=== PATIENT | male | born 1975 | race Caucasian/White ===

== ENCOUNTER 2025-03-01 21:03 | Emergency (ER) | payer OTHER, SELFPAY ==
[2025-03-01 21:11] VITALS: BP 188/118
[2025-03-01 21:34] LABS: Hematocrit 46.0 % (39.0-52.0); Hemoglobin 16.0 g/dL (13.0-18.0); Mean Corp Hgb Conc. 34.8 g/dL (33.0-37.0); Mean Corpuscular Volume 87.5 fL (80.0-94.0); Nucleated Red Blood Cells % 0 % (-); Platelet Count 288 10^3/uL (130-400); Red Cell Dist. Width 12.1 % (11.5-14.5)
[2025-03-01 21:51] LABS: COVID-19 Antigen Negative (Negative)
[2025-03-01 22:03] LABS: ALT (SGPT) 76 U/L (0-50); AST (SGOT) 69 U/L (17-59); Albumin 4.2 g/dl (3.5-5.0); Alkaline Phosphatase 39 U/L (38-126); Blood Urea Nitrogen 14 mg/dl (9-20); Calcium 8.9 mg/dl (8.4-10.2); Carbon Dioxide 28 mmol/L (22-30); Chloride 98 mmol/L (98-107); Glucose 155 mg/dl (70-99); Potassium 4.1 mmol/L (3.5-5.1); Sodium 134 mmol/L (135-145); Total Protein 6.7 g/dl (6.3-8.2); eGFR > 60.00
[2025-03-01] MEDS: MOTRIN 600 MG PO (22:35)
[2025-03-01 23:28] VITALS: BP 158/105; BMI 31.5
--- NOTE | 2025-03-02 00:28 | ED.GENMED ---
History of Present Illness
General
Chief Complaint: Fever
Source: patient
Exam Limitations: none
Time Seen by Provider: 03/01/25 23:13
Nursing documentation reviewed up to this point in time: agreed with
History of Present Illness
History of Present Illness:
49-year-old male presenting to the emergency department today with concerns of fever and upper respiratory symptoms over the past few days. Tylenol prior to arrival. Was seen in urgent care but his blood pressure was elevated and told to go to the
ER. Denies any chest pain shortness of breath numbness weakness.
Review of Systems
Review of Systems
Allergies reviewed?: Yes
All Other Systems: ROS reviewed and negative except as documented in HPI and ROS
Phy Exam
Physical Exam
Physical Exam:
GENERAL: Alert , in no apparent distress
EYE: pupils equal and reactive
NECK: Supple, no significant adenopathy.
ENT: o/p clr, mmm.
CARDIAC: Regular rate and rhythm .
LUNGS: Clear breath sounds bilaterally, no acute respiratory distress, no wheezes/rales/rhonchi
ABDOMEN: Soft, without focal tenderness, no r/g, no cvat
NEUROLOGICAL: Alert and oriented, no focal neuro deficits
SKIN: Warm and dry, skin intact.
MUSCULOSKELETAL: No edema, well perfused.
PSYCH: Normal and appropriate interaction.
Sepsis
Sepsis Screening
Sepsis Assessment: Sepsis Ruled Out
Sepsis Screen
Sepsis Screen: Sepsis Ruled Out
Date: 03/03/25
Time: 08:12
Course
Orders/Labs/Results
Orders:
Orders
03/01/25 21:14
CR Chest - 2 Views Urgent
Comment:
Reason For Exam: suspected infection
03/01/25 21:26
COVID-19 Antigen Urgent
Source: Nasal Swab
Complete Blood Count/With Diff Urgent
Comprehensive Metabolic Panel Urgent
Lactic Acid Q4H
Comment: ON ICE, CANCEL 2ND ORDER IF FIRST LACTIC ACID LEVEL <2
Influenza A+B Rapid Molecular Urgent
[place] Source: Nasal Swab
Specimen Description:
03/01/25 22:33
Ibuprofen [Motrin] 600 mg .ROUTE .STK-MED ONE
03/01/25 22:35
Ibuprofen [Motrin] 600 mg PO NOW STA
Abnormal Lab Results
03/01/25
21:26
Absolute Monos (auto) 0.9 H 10^3/uL
(0.1-0.6)
Lymphocytes % 14.1 L %
(20.5-51.1)
Monocytes % 10.6 H %
(1.7-9.3)
Sodium 134 L mmol/L
(135-145)
Glucose 155 H mg/dl
(70-99)
AST 69 H U/L
(17-59)
ALT 76 H U/L
(0-50)
03/01/25 21:26
03/01/25 21:26
Vital Signs
Initial and Last Documented VS:
Initial Vital Signs
Temp Pulse Resp BP Pulse Ox
99.6 F 102 24 188/118 96
03/01/25 21:11 03/01/25 21:11 03/01/25 21:11 03/01/25 21:11 03/01/25 21:11
Last Documented Vital Signs
Temp Pulse Resp BP Pulse Ox
99.2 F 77 14 168/106 97
03/01/25 23:28 03/02/25 00:35 03/02/25 00:35 03/02/25 00:35 03/02/25 00:35
MDM/Problems Addressed
MDM/Problems Addressed:
49-year-old male presenting to the emergency department today with concerns of upper respiratory symptoms over the past week after vacation in [place]. Blood pressure was elevated at urgent care he was told to go to the ER. Here initial blood
pressure elevated but improving to the 150s over 90s while here in the ER. He was advised to monitor this at home however no signs of hypertensive emergency at this time. Laboratory workup showing slightly elevated transaminase and slightly low
sodium but otherwise no emergent findings stable for outpatient management of influenza which was positive. Return precautions given.
*Pulse Oximetry
SaO2: 98
Oxygen Mode of Delivery: Room air
Patient hypoxic: no (97)
*Critical Care Note
Total Time (30-74mins, 75-104mins- exclusive of procedures): Not Applicable
ED Attending Note
-
Portions of this chart may have been created with voice recognition software.� Occasional wrong word or��sound alike� substitutions may have occurred due to the inherent limitations of voice recognition software.
Discharge Plan
Departure
Patient Disposition: Home (Routine Discharge)
Date of Disposition: 03/02/25
Time of Disposition: 00:29
Patient with high blood pressure during this ER visit?: No
Condition: Good
Covid-19: Not Applicable
Discharge Problem:
Influenza
Instructions: Flu
Prescriptions:
No Action
No Current Medications
0
Referrals:
Tj Aguero MD [Family Provider, [facility]]
Activity Restrictions/Additional Instructions:
You came to the emergency department today with concerns of upper respiratory symptoms you are also found to have an elevated blood pressure which may be circumstantial. You were positive for the flu. Please take symptomatic medications including
Motrin and Tylenol. Return for any worsening, new or concerning symptoms.
Interventions
Interventions:
*Risk Screen - Suicide Last Done: 03/01/25 21:11
*General Assessment Last Done: 03/01/25 21:11
*Neglect/Abuse Screening Last Done: 03/01/25 21:11
*ED- Fall Risk Assessment Last Done: 03/01/25 23:28
*Nursing Disposition Last Done: 03/02/25 00:38
ED- Neurological Assessment Last Done: 03/01/25 23:28
ED-Skin Assessment Last Done: 03/01/25 23:28
Discharge Date and Time
Discharge Date/Time: 03/02/25 00:38
Print Language: JAPANESE
[2025-03-02 00:35] VITALS: BP 168/106
== END 2025-03-02 00:38 | disposition home or self-care (01) ==
LOC: EMR 21:03
PROVIDERS: Emergency Medicine; EMERGENCY PHYSICIAN Emergency Medicine; FAMILY PHYSICIAN Family Medicine
DX: R50.9 Fever, unspecified (principal); J11.1 Influenza due to unidentified influenza virus with other respiratory manifestations; Z11.52 Encounter for screening for COVID-19; Z91.018 Allergy to other foods
CPT/HCPCS: 99283; 71046; 80053; 83605; 85025; 87502; 87811